=== PATIENT | male | born 1970 | race American Indian/Alaskan Native ===

== ENCOUNTER 2017-08-30 12:29 | Emergency (ER) | payer OTHER ==
[2017-08-30] MEDS ORDERED: DUONEB *Not for PRN Use IH ONE (12:37)
[2017-08-30] MEDS ORDERED: NACL 0.9% 1000 ML 1,000 ML IV ONE (15:30)
--- NOTE | 2017-08-30 15:33 | Emergency Department Report ---
ED Shortness of Breath HPI - General Chief Complaint: Adult Asthma Stated Complaint: SOB/ASTHMA Time Seen by Provider: 08/30/17 15:28 Source: patient Mode of arrival: Ambulatory Limitations: No Limitations - History of Present Illness Initial Comments: Patient is a 47-year-old male that presents to the emergency room with complaints of shortness of breath and wheezing 2 days. Patient states that his asthma has been getting worse [place] industrial [place]. [place] it irritates and flares up his asthma. Patient states that his Ventolin was working however he ran out of Ventolin. Patient denies chest pain and fever and chills. Patient complains of cough 2 days as well. Patient states lately he has been using his Ventolin inhaler 4 times per day. MD Complaint: shortness of breath, cough, "asthma attack" -: Gradual Severity: severe Consistency: constant Improves With: bronchodilators, upright position Worsens With: exertion, movement, coughing Known History Of: asthma Context: recent URI, allergen exposure Associated Symptoms: denies other symptoms, cough Treatments Prior to Arrival: bronchodilator - Related Data Home Oxygen Therapy: No Previous Rx's Medication Instructions Recorded Last Taken Type Albuterol Sulfate [Ventolin HFA] 2 puff IH Q4H PRN #1 hfa.aer.ad 08/30/17 Unknown Rx Doxycycline Hyclate [Doxycycline 100 mg PO Q12HR 10 Days #20 tab 08/30/17 Unknown Rx Hyclate TAB] methylPREDNISolone [Medrol] 4 mg PO DAILY 6 Days #1 tab.ds.pk 08/30/17 Unknown Rx Allergies Allergy/AdvReac Type Severity Reaction Status Date / Time Iodine and Iodide Containing Allergy Anaphylaxis Verified 08/30/17 12:35 Produc ED Review of Systems ROS: Stated complaint: SOB/ASTHMA Other details as noted in HPI Constitutional: denies: chills, fever Eyes: denies: eye pain, eye discharge, vision change ENT: denies: ear pain, throat pain Respiratory: cough, shortness of breath, SOB with exertion, SOB at rest, wheezing Cardiovascular: denies: chest pain, palpitations Endocrine: no symptoms reported Gastrointestinal: denies: abdominal pain, nausea, diarrhea Genitourinary: denies: urgency, dysuria Musculoskeletal: denies: back pain, joint swelling, arthralgia Skin: denies: rash, lesions Neurological: denies: headache, weakness, paresthesias Psychiatric: denies: anxiety, depression Hematological/Lymphatic: denies: easy bleeding, easy bruising ED Past Medical Hx - Past Medical History Previous Medical History?: Yes Hx Asthma: Yes - Surgical History Past Surgical History?: No - Family History Family history: hypertension - Social History Smoking Status: Current Every Day Smoker Substance Use Type: None - Medications Home Medications: Home Medications Medication Instructions Recorded Confirmed Last Taken Type Albuterol Sulfate [Ventolin HFA] 2 puff IH Q4H PRN #1 hfa.aer.ad 08/30/17 Unknown Rx Doxycycline Hyclate [Doxycycline 100 mg PO Q12HR 10 Days #20 tab 08/30/17 Unknown Rx Hyclate TAB] methylPREDNISolone [Medrol] 4 mg PO DAILY 6 Days #1 tab.ds.pk 08/30/17 Unknown Rx ED Physical Exam - General Limitations: No Limitations General appearance: alert, in no apparent distress - Head Head exam: Present: atraumatic, normocephalic - Eye Eye exam: Present: normal appearance - ENT ENT exam: Present: mucous membranes moist - Neck Neck exam: Present: normal inspection - Respiratory Respiratory exam: Present: normal lung sounds bilaterally, wheezes - Cardiovascular Cardiovascular Exam: Present: regular rate, normal rhythm. Absent: systolic murmur, diastolic murmur, rubs, gallop - GI/Abdominal GI/Abdominal exam: Present: soft, normal bowel sounds - Rectal Rectal exam: Present: deferred - Extremities Exam Extremities exam: Present: normal inspection - Back Exam Back exam: Present: normal inspection - Neurological Exam Neurological exam: Present: alert, oriented X3 - Psychiatric Psychiatric exam: Present: normal affect, normal mood - Skin Skin exam: Present: warm, dry, intact, normal color. Absent: rash ED Course Vital Signs 08/30/17 08/30/17 08/30/17 12:32 12:46 12:54 Temperature 98.4 F Pulse Rate 94 H Pulse Rate [ 90 94 H Bilateral Upper Lobe] Respiratory 20 Rate Respiratory 20 20 Rate [Bilateral Upper Lobe] Blood Pressure 128/63 Blood Pressure [Left] O2 Sat by Pulse 96 Oximetry 08/30/17 17:16 Temperature 98.2 F Pulse Rate 88 Pulse Rate [ Bilateral Upper Lobe] Respiratory 18 Rate Respiratory Rate [Bilateral Upper Lobe] Blood Pressure Blood Pressure 142/90 [Left] O2 Sat by Pulse 97 Oximetry - Reevaluation(s) Reevaluation #1: Lung sounds clear to auscultation. Patient is improved. Patient states he feels better. Patient stable for discharge 08/30/17 18:05 ED Medical Decision Making - Lab Data Result diagrams: 08/30/17 15:47 08/30/17 15:47 - Radiology Data Radiology results: pending, report reviewed, image reviewed interpreted by me: No acute findings on chest x-ray. - Medical Decision Making Patient's 47-year-old male that presents to emergency room with asthma exacerbation and bronchitis. - Differential Diagnosis bronchitis, asthma exacerbation, COPD, cough, URI, Critical care attestation.: If time is entered above; I have spent that time in minutes in the direct care of this critically ill patient, excluding procedure time. ED Disposition Clinical Impression: Shortness of breath, Asthma exacerbation, Bronchitis Disposition: DC- TO HOME OR SELFCARE Is pt being admited?: No Does the pt Need Aspirin: No Condition: Stable Instructions: Asthma (ED), Acute Bronchitis (ED) Additional Instructions: Patient to follow-up with primary care to date. Patient to follow with network desktop support specialist in 3-5 days. Patient returned here if condition worsens. Patient to take meds as directed. Patient to rest. Prescriptions: Albuterol Sulfate [Ventolin HFA] 2 puff IH Q4H PRN #1 hfa.aer.ad PRN Reason: Shortness Of Breath Doxycycline Hyclate [Doxycycline Hyclate TAB] 100 mg PO Q12HR 10 Days #20 tab methylPREDNISolone [Medrol] 4 mg PO DAILY 6 Days #1 tab.ds.pk Referrals: PRIMARY CARE, [Primary Care Provider] - 3-5 Days Time of Disposition: 18:08
[2017-08-30 16:14] LABS: Basophils # (Auto) 0.1 K/mm3 (0.0-0.1); Basophils % (Auto) 1.5 % (0.0-1.8); Eosinophils # (Auto) 0.2 K/mm3 (0.0-0.4); Eosinophils % (Auto) 2.6 % (0.0-4.3); Hemoglobin 13.4 gm/dl (11.8-15.2); Lymphocytes # (Auto) 3.3 K/mm3 (1.2-5.4); Lymphocytes % (Auto) 33.5 % (13.4-35.0); Mean Corpuscular HGB Conc 33 % (32-34); Mean Corpuscular Hemoglobin 30 pg (28-32); Mean Corpuscular Volume 91 fl (84-94); Monocytes % (Auto) 10.6 % (0.0-7.3); Platelet Count 300 K/mm3 (140-440); Red Blood Count 4.52 M/mm3 (3.65-5.03); Red Cell Distribution Width 15.1 % (13.2-15.2)
[2017-08-30 16:46] LABS: Alanine Aminotransferase 19 units/L (7-56); Albumin 3.8 g/dL (3.9-5); BUN/Creatinine Ratio 14; Blood Urea Nitrogen 10 mg/dL (9-20); Hemolysis Index 10
--- NOTE | 2017-08-30 16:46 | XRay Report ---
FINAL REPORT PROCEDURE: Chest. TECHNIQUE: PA and lateral views. HISTORY: Asthma . COMPARISON: No prior studies are available for comparison. FINDINGS: The heart and mediastinum appear normal. The lungs are clear and well expanded. There are no pleural effusions. The soft tissues and regional skeleton are unremarkable. IMPRESSION: Normal study.
[2017-08-30 17:27] VITALS: BP 142/90
[2017-08-30] MEDS ORDERED: ROCEPHIN/NS 1 GM/50 ML 1 GM/50 ML BAG IV ONE (17:56)
[2017-08-30] MEDS ORDERED: cefTRIAXone 1 GM in NACL 0.9% 20 ML IV ONE (19:00)
== END 2017-08-30 19:11 | disposition home or self-care (01) ==
LOC: ED 12:29
DX: J45.901 Unspecified asthma with (acute) exacerbation (principal); J40 Bronchitis, not specified as acute or chronic; F17.200 Nicotine dependence, unspecified, uncomplicated; Z88.8 Allergy status to other drugs, medicaments and biological substances
CPT/HCPCS: 36415; 71046; 80053; 84484; 85025; 85379; 93005; 93010; 94640; 96361; 96365; 96375; 96376; 99284; J0696; J2930; J7030